=== PATIENT | male | born 1965 | race African-American/Black ===

== ENCOUNTER 2022-02-20 19:19 | Emergency (ER) | payer MEDICARE ==
[2022-02-20] MEDS ORDERED: Rocuronium Bromide 10 MG/ML (10ML VIAL) ONE (19:35)
[2022-02-20] MEDS ORDERED: niCARdipine 25 MG/10 ML VIAL ONE (19:54)
[2022-02-20 20:23] LABS: ALV-art Gradient 590.275 mmHg (0-20); Actual Bicarbonate (HCO3a) 31.4 mEq/L (22-28); Base Excess (BEa) 7.8 mEq/L (-2.0 to +3.0); CO2 Tension 40.5 mmHg (35.0-45.0); Calcium, Ionized (arterial) 1.15 mmol/L (1.12-1.30); Carboxyhemoglobin (COHb) 0.9 gm% (0.0-3.0); Critical Notified By: CP.JL; O2 Tension (PaO2), arterial 72.1 mmHg (80.0-100.0); Potassium - ABG Lab 3.6 mmol/L (3.70-5.30); Puncture Site RRA; RapidComm Collect By CP.JL; pH, Arterial 7.51 (7.35-7.45)
[2022-02-20 20:55] LABS: Hemoglobin 12.8 g/dL (13.5-17.5); Mean Corpuscular HGB CONC 32.2 g/dL (32.0-36.0); Mean Corpuscular Hemoglobin 31.1 pg (27.0-33.0); Mean Corpuscular Volume 96.8 fl (81.2-95.1); Mean Platelet Volume 9.8 fl (7.4-10.4); Platelet Count 222 10x3/uL (150-450); RBC Distribution Width 15.8 % (11.5-14.5); Red Blood Cell (RBC) Count 4.11 10x6/uL (4.32-5.72); White Blood Cell (WBC) Count 9.5 10x3/uL (3.5-10.5)
[2022-02-20 21:07] LABS: SARS-CoV-2 NAA Rapid Test Not Detected (NotDetected)
[2022-02-20 21:07] LABS: ALT (SGPT) 7 U/L (8-55); AST (SGOT) 15 U/L (5-34); Albumin 2.9 g/dL (3.5-5.0); Alkaline Phosphatase 57 U/L (40-110); Anion Gap 17 mmol/L (10-20); BUN (Urea Nitrogen) 21 mg/dL (8.4-25.7); Bilirubin, Total 0.9 mg/dL (0.2-1.2); Calc. Creatinine Clearance 0 mL/min (70-130); Carbon Dioxide 26 mmol/L (22-29); Chloride 99 mmol/L (98-107); Estimated GFR 12; Globulin 4.1 g/dL (2.4-3.5); Glucose 100 mg/dL (70-105); Potassium 4.2 mmol/L (3.5-5.1); Sodium 138 mmol/L (136-145)
[2022-02-20 21:14] LABS: MDiff Complete? YES
[2022-02-20 21:18] LABS: Band 18 % (5-11); Lymphocytes 6 % (21-51); Monocytes 4 % (0-10); Neutrophil 71 % (42-75)
[2022-02-20 21:19] LABS: Platelet Morphology Comment Appears Adequate; RBC Morphology Normal; Vacuoles SLIGHT
[2022-02-20 21:19] LABS: INR-International Normal Ratio 1.2; PTT 28.2 sec (22.0-33.0); Prothrombin Time 12.6 sec (9.5-12.1)
== END 2022-02-20 22:00 | disposition short-term general hospital (02) ==
LOC: CSHERS 19:19
DX: I61.9 Nontraumatic intracerebral hemorrhage, unspecified (principal); I10 Essential (primary) hypertension; Z20.822 Contact with and (suspected) exposure to COVID-19; Z86.73 Personal history of transient ischemic attack (TIA), and cerebral infarction without residual deficits
CPT/HCPCS: 31500; 36415; 36416; 36600; 70450; 71045; 80053; 82805; 85025; 85610; 85730; 87040; 93005; 94002; 94003; J1956; U0002